=== PATIENT | male | born 1965 | race Caucasian/White ===

== ENCOUNTER 2022-12-26 21:50 | Emergency (ER) | payer BC ==
[2022-12-26 22:06] VITALS: TEMP 98.4
[2022-12-26] MEDS ORDERED: DIPH,PERTUS(ACELL)TETVAC-LF 0.5 ML VIAL IM ONE (22:24)
[2022-12-26] MEDS ORDERED: LIDOCAINE 1% INJ 10MG/ML (30 ML VIAL-PF) SQ ONE (22:24)
--- NOTE | 2022-12-26 22:25 | ED ---
Wound/Laceration HPI - General Chief Complaint: Wound/Laceration Stated Complaint: Fall, right arm laceration Time Seen by Provider: 12/26/22 22:20 Source: patient Mode of arrival: ambulatory Limitations: no limitations - History of Present Illness Initial Comments: Patient is a 57-year-old male presenting to the emergency room after a slip and fall caused him to hit his left hand and right forearm on a risk control specialist in the kitchen prior to arrival. He denies any injury to any other extremity, head trauma or loss of consciousness. He denies any range of motion impairment but does report significant bleeding from the laceration of his right forearm. He is unsure regarding his tetanus status. He denies any known contaminants to the wound. He denies any other complaints or concerns. He has past medical history significant for diabetes, hyperlipidemia, CAD and renal insufficiency. - Related Data Allergies Allergy/AdvReac Type Severity Reaction Status Date / Time acetaminophen [From Percocet] Allergy Rash/Hives Verified 12/26/22 22:06 oxycodone [From Percocet] Allergy Rash/Hives Verified 12/26/22 22:06 Review of Systems ROS Statement: Those systems with pertinent positive or pertinent negative responses have been documented in the HPI. ROS Other: All systems not noted in ROS Statement are negative. Past Medical History Past Medical History: Coronary Artery Disease (CAD), Diabetes Mellitus, Hyperlipidemia, Renal Disease History of Any Multi-Drug Resistant Organisms: None Reported Past Surgical History: Back Surgery, Bariatric Surgery, Heart Catheterization With Stent, Joint Replacement, Orthopedic Surgery Additional Past Surgical History / Comment(s): rt knee Past Psychological History: No Psychological Hx Reported Smoking Status: Current every day smoker Past Alcohol Use History: None Reported Past Drug Use History: None Reported General Exam Limitations: no limitations General appearance: alert, in no apparent distress Head exam: Present: atraumatic, normocephalic, normal inspection Eye exam: Present: normal appearance, PERRL, EOMI. Absent: scleral icterus, conjunctival injection, periorbital swelling ENT exam: Present: normal exam, mucous membranes moist Neck exam: Present: normal inspection, full ROM Respiratory exam: Absent: respiratory distress, accessory muscle use Cardiovascular Exam: Present: regular rate GI/Abdominal exam: Absent: distended Right Forearm Wrist exam: Present: full ROM, tenderness, swelling (localized after laceration closure), laceration (dorsal aspect ). Absent: deformity, crepitus, dislocation Vascular: Absent: vascular compromise Left Hand Wrist exam: Present: full ROM, tenderness, laceration (Palmar aspect PIP 3rd & 4th digit superficial no indication for closure. ). Absent: ecchymosis, deformity, crepitus, dislocation, nail avulsion Vascular: Absent: vascular compromise Back exam: Present: normal inspection Neurological exam: Present: alert, oriented X3, CN II-XII intact Psychiatric exam: Present: normal affect, normal mood Skin exam: Present: other (Lacerations as above) Course Vital Signs 12/26/22 12/27/22 22:03 00:20 Temperature 98.4 F Pulse Rate 66 60 Respiratory 20 18 Rate Blood Pressure 160/81 168/82 O2 Sat by Pulse 99 99 Oximetry Procedures - Laceration Laceration #1 Indication: laceration Site: upper extremity (right forearm dorsal aspect) Size (cm): 4 Description: linear Depth: simple, single layer Anesthetic Used: lidocaine 1% Anesthesia Technique: local infiltration Pre-repair: wound explored, irrigated extensively Type of Sutures: nylon Size of Sutures: 4-0 Number of Sutures: 10 Complications: other (localized swelling ) Patient Tolerated Procedure: well Medical Decision Making - Medical Decision Making Was pt. sent in by a medical professional or institution ([facility]ion, TRIM MOUNTER, urgent care, hospital, or intermediate...) When possible be specific @ -No Did you speak to anyone other than the patient for history (EMS, parent, family, police, friend...)? What history was obtained from this source @ -No Did you review nursing and triage notes (agree or disagree)? Why? @ -I reviewed and agree with nursing and triage notes Were old charts reviewed (outside hosp., previous admission, EMS record, old EKG, old radiological studies, urgent care reports/EKG's, intermediate records)? Report findings @ -No old charts were reviewed Differential Diagnosis (chest pain, altered mental status, abdominal pain women, abdominal pain men, vaginal bleeding, weakness, fever, dyspnea, syncope, headache, dizziness, GI bleed, back pain, seizure, CVA, palpatations, mental health, musculoskeletal)? @ -not applicable EKG interpreted by me (3pts min.). @ -None done X-rays interpreted by me (1pt min.). @ -X-ray right forearm: No evidence of fracture or dislocation. CT interpreted by me (1pt min.). @ -None done U/S interpreted by me (1pt. min.). @ -None done What testing was considered but not performed or refused? (CT, X-rays, U/S, labs)? Why? @ -None What meds were considered but not given or refused? Why? @ -None Did you discuss the management of the patient with other professionals (professionals i.e. , PA, TRIM MOUNTER, lab, RT, psych nurse, rn social services, winder fixer, teacher, parachute/combatant diver officer, home health care case manager)? Give summary @ -No Was smoking cessation discussed for >3mins.? @ -No Was critical care preformed (if so, how long)? @ -No Were there social determinants of health that impacted care today? How? (Homelessness, low income, unemployed, alcoholism, drug addiction, transportation, low edu. Level, literacy, decrease access to med. care, senior living, rehab)? @ -No Was there de-escalation of care discussed even if they declined (Discuss DNR or withdrawal of care, Hospice)? DNR status @ -No What co-morbidities impacted this encounter? (DM, HTN, Smoking, COPD, CAD, Cancer, CVA, ARF, Chemo, Hep., AIDS, mental health diagnosis, sleep apnea, morbid obesity)? @ -None Was patient admitted / discharged? Hospital course, mention meds given and route, prescriptions, significant lab abnormalities, going to OR and other pertinent info. @ -57-year-old presenting to the emergency room after a slip in the kitchen to hit his right arm on the middle of the risk control specialist along with his left hand. He denies any trauma to any other extremity. He denies any head trauma or loss of consciousness. He reports that the fall was a slip and fall. He is unsure of his tetanus status. He denies any range of motion impairment. Will obtain x-ray due to severity of laceration prior to closure. X-ray negative for fracture. Suture closure near completion with development of localized swelling at the site of laceration closure unable to express any sanguinous drainage. Swelling contained to approximately 2 cm surrounding laceration with no evidence of vascular compromise. Good radial pulse preempt post-laceration closure and development of localized edema. Pressure dressing applied. Wound care, suture care and local a swelling care all discussed with patient and spouse at bedside. Questions and concerns answered. Strict return parameters to the emergency room discussed. Will discharge home in stable condition with sutures intact to laceration closure of right forearm and pressure dressing intact due to localized swelling of laceration site advising follow-up with primary care provider along with suture removal in the emergency room in 7-10 days. Undiagnosed new problem with uncertain prognosis? @ -No Drug Therapy requiring intensive monitoring for toxicity (Heparin, Nitro, Insulin, Cardizem)? @ -No Were any procedures done? @ -Yes, see procedures for details. Diagnosis/symptom? @ -Laceration Acute, or Chronic, or Acute on Chronic? @ -Acute Uncomplicated (without systemic symptoms) or Complicated (systemic symptoms)? @ -Uncomplicated Side effects of treatment? @ -No Exacerbation, Progression, or Severe Exacerbation? @ -No Poses a threat to life or bodily function? How? (Chest pain, [place], [place], pneumonia, PE, COPD, DKA, ARF, appy, cholecystitis, CVA, Diverticulitis, Homicidal, Suicidal, threat to staff... and all critical care pts) @ -No Case discussed with Dr. Bruno. Disposition Clinical Impression: Laceration Disposition: HOME SELF-CARE Condition: Stable Instructions (If sedation given, give patient instructions): Care For Your Stitches (DC), Laceration (ED) Additional Instructions: Please keep wound clean and dry. Monitor for signs and symptoms of infection and seek medical attention as appropriate if symptoms occur. Please return to the emergency department for suture removal in 7-10 days. Please return to the Emergency Department if symptoms worsen or any other concerns. Is patient prescribed a controlled substance at d/c from ED?: No Referrals: Wood Solis MD [Primary Care Provider] - 1-2 days Time of Disposition: 00:02
[2022-12-27 00:21] VITALS: BP 168/82; PULSE 60; RESP 18
--- NOTE | 2022-12-27 01:06 | XR ---
EXAM: XR Right Forearm, 2 Views CLINICAL HISTORY: ITS.REASON XR Reason: laceration TECHNIQUE: Frontal and lateral views of the right forearm. COMPARISON: No relevant prior studies available. FINDINGS: Bones/joints: No fracture or malalignment. Soft tissues: Dorsal soft tissue laceration. No radiopaque foreign body. IMPRESSION: 1. No fracture or malalignment. 2. Dorsal soft tissue laceration.
== END 2022-12-27 00:28 | disposition home or self-care (01) ==
LOC: EC 21:50
DX: S51.811A Laceration without foreign body of right forearm, initial encounter (principal); E11.9 Type 2 diabetes mellitus without complications; E78.5 Hyperlipidemia, unspecified; I25.10 Atherosclerotic heart disease of native coronary artery without angina pectoris; F17.200 Nicotine dependence, unspecified, uncomplicated; Z88.5 Allergy status to narcotic agent; Z23 Encounter for immunization; W01.0XXA Fall on same level from slipping, tripping and stumbling without subsequent striking against object, initial encounter
CPT/HCPCS: 73090; 90715; 12002; 99283; 90471; J2001

== ENCOUNTER 2024-08-16 19:06 | Emergency (ER) | payer BC ==
[2024-08-16] MEDS: MORPHINE SULFATE 2 MG/ML SYRINGE IM STA (19:33)
--- NOTE | 2024-08-16 19:35 | ED ---
General Adult HPI - General Chief complaint: Head Injury Stated complaint: fall, head injury Time Seen by Provider: 08/16/24 19:13 Source: patient Mode of arrival: wheelchair Limitations: no limitations - History of Present Illness Initial comments: 58-year-old male presenting with chief complaint of head injury. Patient was walking in a parking lot with on even concrete, states that his foot got caught on the uneven surface and he fell forward hitting his head. Patient has a large hematoma to the right side of his forehead. No loss of consciousness or blood thinners. He is experiencing some mild dizziness. He is also experiencing right-sided chest pain worse with deep breaths. He had no chest pain prior to the injury. No shortness of breath. No extremity pain or injury. No abdominal pain. No nausea, vomiting, vision or hearing changes, numbness, tingling, weakness. - Related Data Allergies Allergy/AdvReac Type Severity Reaction Status Date / Time acetaminophen [From Percocet] Allergy Rash/Hives Verified 08/16/24 19:12 oxycodone [From Percocet] Allergy Rash/Hives Verified 08/16/24 19:12 Review of Systems ROS Statement: Those systems with pertinent positive or pertinent negative responses have been documented in the HPI. ROS Other: All systems not noted in ROS Statement are negative. Past Medical History Past Medical History: Coronary Artery Disease (CAD), Diabetes Mellitus, Hyperlipidemia, Renal Disease History of Any Multi-Drug Resistant Organisms: None Reported Past Surgical History: Back Surgery, Bariatric Surgery, Heart Catheterization With Stent, Joint Replacement, Orthopedic Surgery Additional Past Surgical History / Comment(s): rt knee Past Psychological History: No Psychological Hx Reported Smoking Status: Current every day smoker Past Alcohol Use History: None Reported Past Drug Use History: None Reported General Exam Limitations: no limitations General appearance: alert, in no apparent distress Expanded Head exam: Present: hematoma (Right-sided forehead) Eye exam: Present: normal appearance, PERRL, EOMI. Absent: periorbital tenderness Pupils: Present: normal accommodation Neck exam: Present: normal inspection, other (Some paraspinal muscle tenderness, no midline tenderness). Absent: full ROM (Patient has history of multiple neck surgeries and has limited range of motion at baseline) Respiratory exam: Present: normal lung sounds bilaterally, chest wall tenderness. Absent: respiratory distress, wheezes, rales, rhonchi, stridor Cardiovascular Exam: Present: regular rate, normal rhythm, normal heart sounds. Absent: systolic murmur, diastolic murmur, rubs, gallop, clicks Extremities exam: Present: normal inspection Neurological exam: Present: alert, oriented X3 Expanded Patient oriented to: Present: person, place, time Speech: Present: fluid speech Cranial nerves: EOM's Intact: Normal Motor strength exam: RUE: 5, LUE: 5, RLE: 5, LLE: 5 Eye Response: (4) open spontaneously Motor Response: (6) obeys commands Verbal Response: (5) oriented [place] Total: 15 Psychiatric exam: Present: normal affect, normal mood Skin exam: Present: warm, dry Course Vital Signs 08/16/24 08/16/24 08/16/24 19:09 20:45 21:17 Temperature 97.7 F Pulse Rate 67 61 74 Respiratory 18 18 16 Rate Blood Pressure 166/99 163/105 126/89 O2 Sat by Pulse 99 99 98 Oximetry 08/16/24 21:51 Temperature 98.1 F Pulse Rate 64 Respiratory 18 Rate Blood Pressure 176/95 O2 Sat by Pulse 97 Oximetry Medical Decision Making - Medical Decision Making 58-year-old male presenting with chief complaint of head injury. Patient had a trip and fall in the parking lot hitting his face on the ground. He has a large hematoma to the right side of his forehead. No loss of consciousness or blood thinners. No focal neurological deficits, GCS is 15. No acute intracranial process, or fracture of the cervical spine or facial bones. Chest x-ray shows no acute process. Patient is given pain medication and educated on today's findings. Educated on supportive management at home. Follow-up with PCP. Report back to ER with any new or worsening symptoms. Discussed return parameters and answered all questions. Patient conveyed verbal understanding and agreed to the plan. I discussed this case in detail with my attending Dr. Bruno Was pt. sent in by a medical professional or institution (, PA, RECEPTION CENTRE MANAGER, urgent care, hospital, or usp...) When possible be specific @ -No Did you speak to anyone other than the patient for history (EMS, parent, family, police, friend...)? What history was obtained from this source @ -Family Did you review nursing and triage notes (agree or disagree)? Why? @ -I reviewed and agree with nursing and triage notes Were old charts reviewed (outside hosp., previous admission, EMS record, old EKG, old radiological studies, urgent care reports/EKG's, usp records)? Report findings @ -No old charts were reviewed Differential Diagnosis (chest pain, altered mental status, abdominal pain women, abdominal pain men, vaginal bleeding, weakness, fever, dyspnea, syncope, headache, dizziness, GI bleed, back pain, seizure, CVA, palpatations, mental health, musculoskeletal)? @ -Differential includes uncomplicated head injury, concussion, hematoma, fracture, hemorrhage, not an all-inclusive list EKG interpreted by me (3pts min.). @ -As above X-rays interpreted by me (1pt min.). @ -No acute process seen on chest x-ray CT interpreted by me (1pt min.). @ -CT shows no acute intracranial process. Right frontal scalp hematoma measuring 37 x 14 mm. No evidence of cervical spine fracture. Mild multilevel degenerative disc disease U/S interpreted by me (1pt. min.). @ -None done What testing was considered but not performed or refused? (CT, X-rays, U/S, labs)? Why? @ -None What meds were considered but not given or refused? Why? @ -None Did you discuss the management of the patient with other professionals (professionals i.e. , PA, RECEPTION CENTRE MANAGER, lab, RT, psych nurse, clinical social worker, sales assistant, teacher, custody officer, behavioral health case manager)? Give summary @ -No Was smoking cessation discussed for >3mins.? @ -No Was critical care preformed (if so, how long)? @ -No Were there social determinants of health that impacted care today? How? (Homelessness, low income, unemployed, alcoholism, drug addiction, transportation, low edu. Level, literacy, decrease access to med. care, [facility], rehab)? @ -No Was there de-escalation of care discussed even if they declined (Discuss DNR or withdrawal of care, Hospice)? DNR status @ -No What co-morbidities impacted this encounter? (DM, HTN, Smoking, COPD, CAD, Cancer, CVA, ARF, Chemo, Hep., AIDS, mental health diagnosis, sleep apnea, morbid obesity)? @ -None Was patient admitted / discharged? Hospital course, mention meds given and route, prescriptions, significant lab abnormalities, going to OR and other pertinent info. @ -Discharge, see above for details Undiagnosed new problem with uncertain prognosis? @ -No Drug Therapy requiring intensive monitoring for toxicity (Heparin, Nitro, Insulin, Cardizem)? @ -No Were any procedures done? @ -No Diagnosis/symptom? @ -Head injury, traumatic hematoma of the forehead Acute, or Chronic, or Acute on Chronic? @ -Acute Uncomplicated (without systemic symptoms) or Complicated (systemic symptoms)? @ -Uncomplicated Side effects of treatment? @ -No Exacerbation, Progression, or Severe Exacerbation? @ -No Poses a threat to life or bodily function? How? (Chest pain, [place], [place], pneumonia, PE, COPD, DKA, ARF, appy, cholecystitis, CVA, Diverticulitis, Homicidal, S uicidal, threat to staff... and all critical care pts) @ -Low likelihood Disposition Clinical Impression: Traumatic hematoma of forehead, Closed head injury Disposition: HOME SELF-CARE Condition: Good Instructions (If sedation given, give patient instructions): Head Injury (ED), Hematoma (ED) Additional Instructions: Follow up with PCP. Report back to ER with any new or worsening symptoms. Take Motrin and Tylenol as needed for pain control. Use ice to help bring down swelling. You can also use Daryl wrap to help compress the hematoma and help bring down swelling Is patient prescribed a controlled substance at d/c from ED?: No Referrals: Wood Solis MD [Primary Care Provider] - 1-2 days Time of Disposition: 21:32
[2024-08-16] MEDS: SODIUM CHLORIDE 0.9% 1,000 ML IV ONE (19:53)
[2024-08-16] MEDS: HYDROmorphone 0.5 MG/0.5 ML SYRINGE IVP STA ×2 (19:53→20:56)
--- NOTE | 2024-08-16 20:35 | XR ---
EXAMINATION TYPE: XR chest 2V DATE OF EXAM: 08/16/2024 8:29 PM COMPARISON: None CLINICAL INDICATION: Male, 58 years old with history of fall; pain TECHNIQUE: XR chest 2V Frontal and lateral views of the chest. FINDINGS: Lungs/Pleura: There is no evidence of pleural effusion, focal consolidation, or pneumothorax. Pulmonary vascularity: Unremarkable. Heart/mediastinum: Cardiomediastinal silhouette is unremarkable. Musculoskeletal: No acute osseous pathology. IMPRESSION: No acute cardiopulmonary disease/process. [facility], , 08/16/2024 8:33 PM
--- NOTE | 2024-08-16 21:01 | CT ---
EXAMINATION TYPE: CT brain cspine wo con, CT facial bones wo con DATE OF EXAM: 08/16/2024 8:24 PM COMPARISON: None. CLINICAL INDICATION: Male, 58 years old with history of fall; FALL, pain TECHNIQUE: Brain: Multiple axial CT images of the brain were obtained without IV contrast. Cspine: Axial CT images from the skull base to the inferior aspect of T2 we obtained without intraven ous contrast. Coronal and sagittal reformatted images were also reviewed. Facial: Axial imaging of the facial structures with sagittal and coronal reformats. CT DLP: 1272.1 COMBINED (accession [id number]), 1272 COMBINED (accession [id number]) mGycm, Automated exp osure control for dose reduction was used. FINDINGS: Brain: Extra-axial spaces: No abnormal extra-axial fluid collections. Ventricular system: Within normal limits Cerebral parenchyma: No acute intraparenchymal hemorrhage or mass effect. The jacobs-white junction is well differentiated. Cerebellum: Unremarkable. Mass effect: No evidence of midline shift. Intracranial vasculature: Atherosclerotic calcifications of the intracranial vessels. Soft tissues: Right frontal scalp hematoma measuring 37 x 14 mm Calvarium/osseous structures: No depressed skull fracture. Paranasal sinuses and mastoid air cells: Clear. Visualized orbits: Orbital contents are intact. Cervical spine: Fracture: None. Osseous structures: Multilevel degenerative disc disease changes with endplate spurring and disc oste ophyte complex's. Fixation hardware at C3 C4 C5 is intact. Vertebral alignment: Within normal limits. Spinal canal/Neural Foramina: Disc osteophyte complexes at increased C4-C6 C7. With at least mild spi nal canal stenosis. No evidence for significant neural foraminal stenosis. Neck soft tissues: Prevertebral soft tissues are within normal limits. Other: The airway is patent. The lung apices are clear. Facial: Right frontal scalp hematoma measuring 37 x 14 mm. There is no evidence of fracture, subluxat ion, dislocation. The orbital contents are unremarkable.The temporal-mandibular joints appear symmetr ic. The mild paranasal sinus mucosal thickening. IMPRESSION: 1. No acute intracranial process. 2. Right frontal scalp hematoma measuring 37 x 14 mm 3. No evidence of cervical spine fracture. 4. Mild multilevel degenerative disc disease. [facility], , 08/16/2024 8:59 PM
[2024-08-16] MEDS: HYDROmorphone 1 MG/ML 1 ML SYRINGE IVP STA (21:08)
[2024-08-16] MEDS: KETOROLAC 15 MG/ML 1 ML VIAL IVP STA (21:09)
[2024-08-16 21:53] VITALS: BP 176/95; PULSE 64; RESP 18; TEMP 98.1
== END 2024-08-16 21:54 | disposition home or self-care (01) ==
LOC: EC 19:06
DX: S00.83XA Contusion of other part of head, initial encounter (principal); S06.9X0A Unspecified intracranial injury without loss of consciousness, initial encounter; F17.200 Nicotine dependence, unspecified, uncomplicated; Z88.1 Allergy status to other antibiotic agents; Z88.5 Allergy status to narcotic agent; W22.09XA Striking against other stationary object, initial encounter; Y92.481 Parking lot as the place of occurrence of the external cause
CPT/HCPCS: 71046; 72125; 70486; 70450; 99284; 96372; 96374; 96375; 96376; 96361; J2270; J1171 ×2; J1885

== ENCOUNTER 2024-11-07 09:34 | Emergency (ER) | payer BC ==
[2024-11-07 09:43] VITALS: TEMP 97.9
--- NOTE | 2024-11-07 10:37 | ED ---
General Adult HPI - General Chief complaint: Chest Pain Stated complaint: chest pain Time Seen by Provider: 11/07/24 09:47 Source: patient, family Mode of arrival: ambulatory Limitations: no limitations - History of Present Illness Initial comments: Dictation was produced using [employer] dictation software. please excuse any grammatical, word or spelling errors. Chief Complaint: 59-year-old male presents to the emergency department with chest burning, left knee pain left calf pain and left ankle pain History of Present Illness: Patient 59-year-old male who has a history of chronic pain. Last week states he saw his pain doctor. Last 1 week patient has been having burning sensation to his esophagus, chest and upper abdomen. He has history of perforated gastric ulcer states that his symptoms remind him of that. States that he has also had diarrhea. Also complains of left knee pain left ankle pain left calf pain. Saw the pain doctor last week told him that he might have a DVT. The ROS documented in this emergency department record has been reviewed and confirmed by me. Those systems with pertinent positive or negative responses have been documented in the HPI. All other systems are other negative and/or noncontributory. - Related Data Previous Rx's Medication Instructions Recorded Azithromycin [Zithromax Z Pack] 1 tab PO DIRECTED #6 tab 11/07/24 Allergies Allergy/AdvReac Type Severity Reaction Status Date / Time acetaminophen [From Percocet] Allergy Rash/Hives Verified 08/16/24 19:12 oxycodone [From Percocet] Allergy Rash/Hives Verified 08/16/24 19:12 Review of Systems ROS Statement: Those systems with pertinent positive or pertinent negative responses have been documented in the HPI. ROS Other: All systems not noted in ROS Statement are negative. Past Medical History Past Medical History: Coronary Artery Disease (CAD), Diabetes Mellitus, Hyperlipidemia, Renal Disease History of Any Multi-Drug Resistant Organisms: None Reported Past Surgical History: Back Surgery, Bariatric Surgery, Heart Catheterization With Stent, Joint Replacement, Orthopedic Surgery Additional Past Surgical History / Comment(s): rt knee,gastric bypass Past Psychological History: No Psychological Hx Reported Smoking Status: Current every day smoker Past Alcohol Use History: None Reported Past Drug Use History: None Reported General Exam - General Exam Comments Initial Comments: PHYSICAL EXAM: General Impression: Alert and oriented x3, not in acute distress, pallor HEENT: Normocephalic atraumatic, extra-ocular movements intact, pupils equal and reactive to light bilaterally, mucous membranes moist. Cardiovascular: Heart regular rate and rhythm Chest: Able to complete full sentences, no retractions, no tachypnea Abdomen: abdomen soft, non-tender, non-distended, no organomegaly Musculoskeletal: Pulses present and equal in all extremities, no peripheral edema Motor: no focal deficits noted Neurological: CN II-XII grossly intact, no focal motor or sensory deficits noted Skin: Intact with no visualized rashes Psych: Normal affect and mood Limitations: no limitations Course Vital Signs 11/07/24 11/07/24 11/07/24 09:41 11:20 13:00 Temperature 97.9 F Pulse Rate 66 60 66 Respiratory 16 20 18 Rate Blood Pressure 186/96 139/82 140/79 O2 Sat by Pulse 98 97 99 Oximetry EKG Findings - EKG Comments: EKG Findings:: My EKG interpretation: Ventricular rate 64, sinus rhythm, parable 197, cures 121, QTc 420. No UT prolongation, no QTC prolongation, no ST or T- wave changes noted. Overall, this EKG is unremarkable Medical Decision Making - Medical Decision Making Was pt. sent in by a medical professional or institution (, PA, DEPUTY GENERAL COUNSEL, urgent care, hospital, or longterm...) When possible be specific @ -No Did you speak to anyone other than the patient for history (EMS, parent, family, police, friend...)? What history was obtained from this source @ -No Did you review nursing and triage notes (agree or disagree)? Why? @ -I reviewed and agree with nursing and triage notes Were old charts reviewed (outside hosp., previous admission, EMS record, old EKG, old radiological studies, urgent care reports/EKG's, longterm records)? Report findings @ -No old charts were reviewed Differential Diagnosis (chest pain, altered mental status, abdominal pain women, abdominal pain men, vaginal bleeding, musculoskeletal, weakness, fever, dyspnea, syncope, headache, dizziness, GI bleed, back pain, seizure, CVA, palpatations, mental health)? @ -Differential Abdominal Pain Men: Appendicitis, cholecystitis, diverticulosis, ischemic bowel, pancreatitis, hepatitis, UTI, gastroenteritis, AAA, incarcerated hernia, bowel obstruction, constipation, inflammatory bowel, hepatitis, peptic ulcer disease, splenic infarction, perforated viscus, testicular torsion, this is not meant to be an all-inclusive list See above EKG interpreted by me (3pts min.). @ -None done X-rays interpreted by me (1pt min.). @ -Chest x-ray is unremarkable, knee and ankle x-ray shows no acute processes. CT interpreted by me (1pt min.). @ -CT chest abdomen and pelvis obtained. There is inflammatory changes seen along with colon without any complication. U/S interpreted by me (1pt. min.). @ -None done What testing was considered but not performed or refused? (CT, X-rays, U/S, labs)? Why? @ -None What meds were considered but not given or refused? Why? @ -None Was smoking cessation discussed for >3mins.? @ -No Were there social determinants of health that impacted care today? How? (Homelessness, low income, unemployed, alcoholism, drug addiction, transportat ion, low edu. Level, literacy, decrease access to med. care, prison, rehab)? @ -No Was there de-escalation of care discussed even if they declined (Discuss DNR or withdrawal of care, Hospice)? DNR status @ -No What co-morbidities impacted this encounter? (DM, HTN, Smoking, COPD, CAD, Cancer, CVA, ARF, Chemo, Hep., AIDS, mental health diagnosis, sleep apnea, morbid obesity)? @ -History of peptic ulcer Was patient admitted / discharged? Hospital course, mention meds given and route, prescriptions, significant lab abnormalities, going to OR and other pertinent info. @ -59-year-old male presents to the emergency department with vague symptoms of esophageal burning, diarrhea and abdominal cramping. Vital signs upon arrival are within acceptable limits. Patient states that whenever he eats he gets instant watery diarrhea. Denies any blood or mucus in his stool. Vital signs are stable. Laboratory evaluation is unremarkable. No leukocytosis rest of labs within acceptable limits. Abdominal labs are negative. Patient did report some relief with GI cocktail. CT angiography shows colitis. Ankle knee x-rays shows arthritis. Chest x-ray nonacute. Venous Doppler shows no blood clot. Patient reevaluated the bedside at 2:00 PM is told that symptoms could reflect ischemic colitis. Given degree of patient's symptoms he was recommended to him to be admitted overnight for serial abdominal exams and medical monitoring. He states that he refuses needs to be discharged because he has personal matters to attend to including a court appearance along with other errands. Patient unde rstands that his symptoms could progressively worsen. He is discharged advised close follow-up with primary care doctor, GI specialist. He is also given strict return precautions. Patient given Z-Tino for persistent diarrhea. Still to lease picker Maalox along with antidiarrheal medications at local pharmacy. Did you discuss the management of the patient with other professionals (professionals i.e. , PA, DEPUTY GENERAL COUNSEL, lab, RT, psych nurse, social secretary, wire transfer clerk, teacher, debt recovery officer, case packer and sealer)? Give summary @ -No Was critical care preformed (if so, how long)? @ -No Undiagnosed new problem with uncertain prognosis? @ -No Drug Therapy requiring intensive monitoring for toxicity (Heparin, Nitro, Insulin, Cardizem)? @ -No Were any procedures done? @ -No Diagnosis/symptom? Acute, or Chronic, or Acute on Chronic? Uncomplicated (without systemic symptoms) or Complicated (systemic symptoms)? @ -Colitis Side effects of treatment? @ -No Exacerbation, Progression, or Severe Exacerbation? @ -No Poses a threat to life or bodily function? How? (Chest pain, USA, IA, pneumonia, PE, COPD, DKA, ARF, appy, cholecystitis, CVA, Diverticulitis, Homicidal, Suicidal, threat to staff... and all critical care pts) @ -yes - Lab Data Result diagrams: 11/07/24 10:32 11/07/24 10:32 Lab Results 11/07/24 11/07/24 11/07/24 Range/Units 10:32 10:32 10:32 WBC 9.10 (4.50-10.00) 10*3/uL RBC 6.23 H (4.40-5.60) 10*6/uL Hgb 15.0 (13.0-17.0) g/dL Hct 45.3 (39.6-50.0) % MCV 72.7 L (80.0-97.0) fL MCH 24.1 L (27.0-32.0) pg MCHC 33.1 (32.0-37.0) g/dL Plt Count 216 (140-440) 10*3/uL MPV 10.8 (9.5-12.2) fL Immature Gran % (Auto) 0.2 % Neutrophils % 72.2 % Lymphocytes % 16.7 % Monocytes % 8.7 % Eosinophils % 1.4 % Basophils % 0.8 % Immature Gran # 0.02 (0.00-0.04) 10*3/uL Neutrophils # 6.57 (1.80-7.70) 10*3/uL Lymphocytes # 1.52 (0.90-5.00) 10*3/uL Monocytes # 0.79 (0.20-1.00) 10*3/uL Eosinophils # 0.13 (0.04-0.35) 10*3/uL Basophils # 0.07 (0.00-0.10) 10*3/uL RBC Morphology Normal Poikilocytosis (manual Present PT 10.7 (10.0-12.5) sec INR 1.0 (<1.2) APTT 24.2 (22.0-30.0) sec Sodium 138 (137-145) mmol/L Potassium 4.2 (3.5-5.1) mmol/L Chloride 106 (98-107) mmol/L Carbon Dioxide 24 (22-30) mmol/L Anion Gap 8 mmol/L BUN 12 (9-20) mg/dL Creatinine 1.27 H (0.66-1.25) mg/dL Est GFR (CKD-EPI)AfAm 71 (>60 ml/min/1.73 sqM) Est GFR (CKD-EPI)NonAf 61 (>60 ml/min/1.73 sqM) Glucose 90 (74-99) mg/dL Plasma Lactic Acid Jewel (0.7-2.0) mmol/L Calcium 9.5 (8.4-10.2) mg/dL Magnesium 2.3 (1.6-2.3) mg/dL Total Bilirubin 1.0 (0.2-1.3) mg/dL AST 55 (17-59) U/L ALT 44 (4-49) U/L Alkaline Phosphatase 93 (38-126) U/L Troponin I (0.000-0.034) ng/mL Total Protein 7.4 (6.3-8.2) g/dL Albumin 4.2 (3.5-5.0) g/dL Lipase 137 (23-300) U/L Blood Type Blood Type Confirm Blood Type Recheck Bld Type Recheck Status Antibody Screen Spec Expiration Date 11/07/24 11/07/24 11/07/24 Range/Units 10:32 10:32 10:40 WBC (4.50-10.00) 10*3/uL RBC (4.40-5.60) 10*6/uL Hgb (13.0-17.0) g/dL Hct (39.6-50.0) % MCV (80.0-97.0) fL MCH (27.0-32.0) pg MCHC (32.0-37.0) g/dL Plt Count (140-440) 10*3/uL MPV (9.5-12.2) fL Immature Gran % (Auto) % Neutrophils % % Lymphocytes % % Monocytes % % Eosinophils % % Basophils % % Immature Gran # (0.00-0.04) 10*3/uL Neutrophils # (1.80-7.70) 10*3/uL Lymphocytes # (0.90-5.00) 10*3/uL Monocytes # (0.20-1.00) 10*3/uL Eosinophils # (0.04-0.35) 10*3/uL Basophils # (0.00-0.10) 10*3/uL RBC Morphology Poikilocytosis (manual PT (10.0-12.5) sec INR (<1.2) APTT (22.0-30.0) sec Sodium (137-145) mmol/L Potassium (3.5-5.1) mmol/L Chloride (98-107) mmol/L Carbon Dioxide (22-30) mmol/L Anion Gap mmol/L BUN (9-20) mg/dL Creatinine (0.66-1.25) mg/dL Est GFR (CKD-EPI)AfAm (>60 ml/min/1.73 sqM) Est GFR (CKD-EPI)NonAf (>60 ml/min/1.73 sqM) Glucose (74-99) mg/dL Plasma Lactic Acid Jewel 1.0 (0.7-2.0) mmol/L Calcium (8.4-10.2) mg/dL Magnesium (1.6-2.3) mg/dL Total Bilirubin (0.2-1.3) mg/dL AST (17-59) U/L ALT (4-49) U/L Alkaline Phosphatase (38-126) U/L Troponin I <0.012 (0.000-0.034) ng/mL Total Protein (6.3-8.2) g/dL Albumin (3.5-5.0) g/dL Lipase (23-300) U/L Blood Type Blood Type Confirm A Positive Blood Type Recheck Bld Type Recheck Status Antibody Screen Spec Expiration Date 11/07/24 Range/Units 10:45 WBC (4.50-10.00) 10*3/uL RBC (4.40-5.60) 10*6/uL Hgb (13.0-17.0) g/dL Hct (39.6-50.0) % MCV (80.0-97.0) fL MCH (27.0-32.0) pg MCHC (32.0-37.0) g/dL Plt Count (140-440) 10*3/uL MPV (9.5-12.2) fL Immature Gran % (Auto) % Neutrophils % % Lymphocytes % % Monocytes % % Eosinophils % % Basophils % % Immature Gran # (0.00-0.04) 10*3/uL Neutrophils # (1.80-7.70) 10*3/uL Lymphocytes # (0.90-5.00) 10*3/uL Monocytes # (0.20-1.00) 10*3/uL Eosinophils # (0.04-0.35) 10*3/uL Basophils # (0.00-0.10) 10*3/uL RBC Morphology Poikilocytosis (manual PT (10.0-12.5) sec INR (<1.2) APTT (22.0-30.0) sec Sodium (137-145) mmol/L Potassium (3.5-5.1) mmol/L Chloride (98-107) mmol/L Carbon Dioxide (22-30) mmol/L Anion Gap mmol/L BUN (9-20) mg/dL Creatinine (0.66-1.25) mg/dL Est GFR (CKD-EPI)AfAm (>60 ml/min/1.73 sqM) Est GFR (CKD-EPI)NonAf (>60 ml/min/1.73 sqM) Glucose (74-99) mg/dL Plasma Lactic Acid Jewel (0.7-2.0) mmol/L Calcium (8.4-10.2) mg/dL Magnesium (1.6-2.3) mg/dL Total Bilirubin (0.2-1.3) mg/dL AST (17-59) U/L ALT (4-49) U/L Alkaline Phosphatase (38-126) U/L Troponin I (0.000-0.034) ng/mL Total Protein (6.3-8.2) g/dL Albumin (3.5-5.0) g/dL Lipase (23-300) U/L Blood Type A Positive Blood Type Confirm Blood Type Recheck No Previous Record Bld Type Recheck Status CABO Indicated Antibody Screen NEGATIVE Spec Expiration Date 11/10/20242344 Disposition Clinical Impression: Colitis Disposition: HOME SELF-CARE Condition: Fair Instructions (If sedation given, give patient instructions): Colitis (ED) Additional Instructions: please visit your local pharmacy for medications to treat your symptoms including maalox and imodium Prescriptions: Azithromycin [Zithromax Z Pack] 1 tab PO DIRECTED #6 tab Is patient prescribed a controlled substance at d/c from ED?: No Referrals: Shawna Rodrigues MD [STAFF PHYSICIAN] - 1-2 days Time of Disposition: 14:00
[2024-11-07 10:46] LABS: Basophils # (A) 0.07 10*3/uL (0.00-0.10); Basophils % (A) 0.8 %; Eosinophils # (A) 0.13 10*3/uL (0.04-0.35); Eosinophils % (A) 1.4 %; HCT 45.3 % (39.6-50.0); Lymphocytes # (A) 1.52 10*3/uL (0.90-5.00); Lymphocytes % (A) 16.7 %; MCH 24.1 pg (27.0-32.0); MCHC 33.1 g/dL (32.0-37.0); MCV 72.7 fL (80.0-97.0); Mean Platelet Volume 10.8 fL (9.5-12.2); Monocytes # (A) 0.79 10*3/uL (0.20-1.00); Monocytes % (A) 8.7 %; Neutrophils # (A) 6.57 10*3/uL (1.80-7.70); Neutrophils % (A) 72.2 %; Platelet Count 216 10*3/uL (140-440); RBC 6.23 10*6/uL (4.40-5.60); RDW 18.2 % (11.5-14.5)
[2024-11-07 11:00] LABS: Partial Thromboplastin Time 24.2 sec (22.0-30.0); Prothrombin Time 10.7 sec (10.0-12.5)
[2024-11-07 11:06] LABS: ALT 44 U/L (4-49); AST 55 U/L (17-59); African American GFR (CKD) 71 (>60 ml/min/1.73 sqM); Albumin 4.2 g/dL (3.5-5.0); Alkaline Phosphatase 93 U/L (38-126); Anion Gap 8 mmol/L; Blood Urea Nitrogen 12 mg/dL (9-20); Calcium 9.5 mg/dL (8.4-10.2); Carbon Dioxide 24 mmol/L (22-30); Chloride 106 mmol/L (98-107); Glucose 90 mg/dL (74-99); Lipase 137 U/L (23-300); Magnesium 2.3 mg/dL (1.6-2.3); Non-African American GFR(CKD) 61 (>60 ml/min/1.73 sqM); Potassium 4.2 mmol/L (3.5-5.1); Sodium 138 mmol/L (137-145); Total Protein 7.4 g/dL (6.3-8.2)
--- NOTE | 2024-11-07 11:09 | US ---
EXAMINATION TYPE: US venous doppler duplex LE LT DATE OF EXAM: 11/07/2024 10:24 AM COMPARISON: NONE CLINICAL INDICATION: Male, 59 years old with history of left leg pain; Left leg pain and edema , Pain TECHNIQUE: The lower extremity deep venous system is examined utilizing real time linear array sonog moy with graded compression, color doppler sonography, and spectral doppler. SIDE PERFORMED: left FINDINGS: VESSELS IMAGED: Common Femoral Vein Deep Femoral Vein Greater Saphenous Vein * Femoral Vein Popliteal Vein Small Saphenous Vein * Proximal Calf Veins (* superficial vessels) Left Leg: No evidence of DVT as visualized , Color Doppler imaging shows patency of the vessels. Spe ctral waveforms are within normal limits. IMPRESSION: 1. No evidence of acute deep vein thrombosis of the left lower extremity. [facility], , 11/07/2024 11:07 AM
[2024-11-07 11:19] LABS: Poikilocytosis (M) Present; RBC Morphology Normal
--- NOTE | 2024-11-07 11:44 | XR ---
EXAMINATION TYPE: XR chest 2V DATE OF EXAM: 11/07/2024 CLINICAL INDICATION: Male, 59 years old with history of epigastric pain, TECHNIQUE: Frontal and lateral views of the chest are obtained. COMPARISON: Chest x-ray August 16, 2024 FINDINGS: There is mild cardiomegaly redemonstrated. Small amount of fluid in the right lung fissure. No suspicious focal airspace opacity or pneumothorax seen bilaterally. Surgical change of cervical s pine is partially imaged. IMPRESSION: Mild cardiomegaly without acute pulmonary infiltrate. [facility], , 11/07/2024 11:42 AM
--- NOTE | 2024-11-07 11:45 | XR ---
EXAMINATION TYPE: XR knee complete LT DATE OF EXAM: 11/07/2024 CLINICAL INDICATION: Male, 59 years old with history of left leg pain, pain TECHNIQUE: 3 views of the knee were obtained. COMPARISON: None. FINDINGS: There is no acute fracture/dislocation evident in left knee. Moderate tricompartment joint space loss and spurring. Subtle meniscal calcifications medially felt present. Posterior arteriovasc ular calcification is present. IMPRESSION: As above. [facility], , 11/07/2024 11:43 AM
--- NOTE | 2024-11-07 11:47 | XR ---
EXAMINATION TYPE: XR ankle complete LT DATE OF EXAM: 11/07/2024 CLINICAL INDICATION: Male, 59 years old with history of left leg pain, pain TECHNIQUE: Frontal, lateral and oblique images of the left ankle are obtained. COMPARISON: None. FINDINGS: There is no acute fracture/dislocation evident in the left ankle. The ankle mortise appea rs within normal limits. Moderate diffuse soft tissue swelling is seen. Some faint calcifications med ially distal leg likely reflect product of venous stasis. IMPRESSION: As above. [facility], , 11/07/2024 11:44 AM
[2024-11-07] MEDS ORDERED: MAG HYDROX/AL HYDROX/SIMETH 30 ML CUP PO PRN (12:08)
[2024-11-07] MEDS: LIDOCAINE VISCOUS 2% 15 ML CUP PO ONE (12:26)
[2024-11-07] MEDS: HYOSCYAMINE SULFATE 0.125 MG TAB PO STA (13:23)
--- NOTE | 2024-11-07 13:26 | CT ---
EXAMINATION TYPE: CT ChestAbdPelvis w con DATE OF EXAM: 11/07/2024 COMPARISON: NONE CLINICAL INDICATION: Male, 59 years old with history of epigastric pain, Chest pain, epigastric pain, cardiac hx, TECHNIQUE: CT scan of the thorax, abdomen and pelvis is performed with IV Contrast, patient injected with 80 mL of Isovue 300. CT DLP: 1612.4 mGycm. Automated Exposure Control for Dose Reduction was Utilized. FINDINGS: LUNGS: Focal linear scarring or atelectasis right midlung laterally is seen. [id number] right g reater than left bibasilar linear scarring and/or atelectasis is present . There is no pleural effusi on or pneumothorax seen. The tracheobronchial tree is patent. HEART: Size within normal limits. Moderate to severe three-vessel coronary artery calcification MEDIASTINUM: There are no greater than 1 cm hilar or mediastinal lymph nodes. No pericardial effusi on is seen. OTHER: Small degree bilateral subareolar gynecomastia. Surgical clips in the right axilla are thought present. LIVER/GB: Dependent density in gallbladder is consistent with small degree of sludge. Gallbladder is distended margins. No surrounding ill-defined fluid or fat stranding. Surgical clip just inferior to the gallbladder is noted. PANCREAS: No significant abnormality is seen. SPLEEN: No significant abnormality is seen. ADRENALS: No significant abnormality is seen. KIDNEYS: No significant abnormality is seen. BOWEL: Surgical changes epigastric region from gastric bypass surgery. No abnormal small or large bow el dilatation. Suboptimal evaluation without enteric contrast. Moderate wall thickening involving the left and sigmoid colon is present extending into the rectum. GENITAL ORGANS: No gross abnormality seen. LYMPH NODES: No greater than 1cm abdominal or pelvic lymph nodes are appreciated. OSSEOUS STRUCTURES: Surgical change L3-S1 levels is present. Bridging osteophytes in the thoracic spi ne are seen. OTHER: No significant additional abnormality is seen. IMPRESSION: Post surgical change to the stomach is present. There is possible uncomplicated acute di stal colitis from the distal transverse colon to the rectum versus product of poor distention. Differ ential includes infectious, inflammatory, and ischemic etiologies. Correlate clinically. No suspiciou s acute finding in the thorax is seen. [facility], , 11/07/2024 1:24 PM
[2024-11-07 13:32] VITALS: RESP 18
[2024-11-07] MEDS: DEXAMETHASONE SOD PHOSPHATE 10 MG/ML 1 ML VIAL IV STA (14:12)
[2024-11-07 14:15] VITALS: BP 136/94; PULSE 64
== END 2024-11-07 19:24 | disposition home or self-care (01) ==
LOC: EC 09:34
DX: K52.9 Noninfective gastroenteritis and colitis, unspecified (principal); Z87.11 Personal history of peptic ulcer disease; F17.200 Nicotine dependence, unspecified, uncomplicated; Z88.5 Allergy status to narcotic agent; Z88.6 Allergy status to analgesic agent
CPT/HCPCS: 36415; 93005; 86900; 86901; 80053; 83605; 83690; 83735; 84484; 85025; 85610; 85730; 86850; 73562; 73610; 71046; 93971; 71260; 74177; 99285; 96374; J1100; Q9967

== ENCOUNTER 2025-02-11 13:16 | Emergency (ER) | payer BC ==
[2025-02-11 13:24] VITALS: TEMP 97.8
[2025-02-11 13:33] LABS: Glucose,Whole Blood 104 mg/dL (70-110)
--- NOTE | 2025-02-11 13:36 | ED ---
General Adult HPI - General Chief complaint: Dizziness Stated complaint: Dizziness Time Seen by Provider: 02/11/25 13:19 Source: patient, family, RN notes reviewed Mode of arrival: EMS Limitations: no limitations - History of Present Illness Initial comments: Patient is a 59-year-old male present to the emergency department with concerns for dizziness and near syncopal episode. Patient was at work working quickly in a hot environment. Patient suddenly felt extremely dizzy and almost lost consciousness. Patient states he never lost consciousness. Patient admits to having right arm weakness however states this was from a fall 2 weeks ago. Patient states that his from discomfort from the fall and not from today. Patient states there is no change from arm problems yesterday and today. Patient attributes his arm weakness to pain with movement. - Related Data Previous Rx's Medication Instructions Recorded Azithromycin [Zithromax Z Pack] 1 tab PO DIRECTED #6 tab 11/07/24 Allergies Allergy/AdvReac Type Severity Reaction Status Date / Time acetaminophen [From Percocet] Allergy Rash/Hives Verified 02/11/25 13:24 oxycodone [From Percocet] Allergy Rash/Hives Verified 02/11/25 13:24 Review of Systems ROS Statement: Those systems with pertinent positive or pertinent negative responses have been documented in the HPI. ROS Other: All systems not noted in ROS Statement are negative. Constitutional: Denies: fever Eyes: Denies: eye pain ENT: Denies: ear pain Cardiovascular: Denies: chest pain Gastrointestinal: Denies: abdominal pain Musculoskeletal: Reports: as per HPI. Denies: back pain Neurological: Reports: vertigo. Denies: headache, weakness Past Medical History Past Medical History: Coronary Artery Disease (CAD), Diabetes Mellitus, Hyperlipidemia, Renal Disease History of Any Multi-Drug Resistant Organisms: None Reported Past Surgical History: Back Surgery, Bariatric Surgery, Heart Catheterization With Stent, Joint Replacement, Orthopedic Surgery Additional Past Surgical History / Comment(s): rt knee,gastric bypass Past Psychological History: No Psychological Hx Reported Smoking Status: Current every day smoker Past Alcohol Use History: None Reported Past Drug Use History: None Reported General Exam Limitations: no limitations General appearance: alert, in no apparent distress Head exam: Present: atraumatic, normocephalic Eye exam: Present: normal appearance, PERRL, EOMI. Absent: nystagmus Neck exam: Present: normal inspection. Absent: tenderness Respiratory exam: Present: normal lung sounds bilaterally Cardiovascular Exam: Present: regular rate, normal rhythm Expanded Peripheral pulses: 2+: Radial (R), Radial (L), Posterior Tibialis (R), Posterior Tibialis (L) GI/Abdominal exam: Present: soft. Absent: tenderness Extremities exam: Present: normal inspection Neurological exam: Present: alert, CN II-XII intact. Absent: motor sensory deficit Expanded Neurological exam: Present: protecting the airway Speech: Present: fluid speech Cranial nerves: EOM's Intact: Normal Sensory exam: Upper Extremity Light Touch: Normal, Lower Extremity Light Touch: Normal Motor strength exam: RUE: 5, LUE: 5, RLE: 5, LLE: 5 Eye Response: (4) open spontaneously Motor Response: (6) obeys commands Verbal Response: (5) oriented Psychiatric exam: Present: normal affect, normal mood Skin exam: Present: normal color Course Vital Signs 02/11/25 02/11/25 13:17 15:01 Temperature 97.8 F Pulse Rate 77 48 L Respiratory 16 22 Rate Blood Pressure 118/64 122/73 O2 Sat by Pulse 100 98 Oximetry EKG Findings - EKG Results: EKG: interpreted by ERMD (Left axis. LVH criteria. first-degree AV block with a RI of 211.), sinus rhythm, normal ST/T EKG shows: bradycardia Medical Decision Making - Medical Decision Making Was pt. sent in by a medical professional or institution (, PA, VEHICLE WASHER, urgent care, hospital, or retirement...) When possible be specific @ -No Did you speak to anyone other than the patient for history (EMS, parent, family, police, friend...)? What history was obtained from this source @ -No Did you review nursing and triage notes (agree or disagree)? Why? @ -I reviewed and agree with nursing and triage notes Were old charts reviewed (outside hosp., previous admission, EMS record, old EKG, old radiological studies, urgent care reports/EKG's, retirement records)? Report findings @ -No old charts were reviewed Differential Diagnosis (chest pain, altered mental status, abdominal pain women, abdominal pain men, vaginal bleeding, weakness, fever, dyspnea, syncope, headache, dizziness, GI bleed, back pain, seizure, CVA, palpatations, mental health, musculoskeletal)? @ -Differential Syncope: Valvular disease, hypertrophic cardiomyopathy, pulmonary embolism, tamponade, tachycardia, bradycardia, AL, hypovolemia, hemorrhage, dissection, anemia, intracranial hemorrhage, seizure, hypoglycemia, carbon monoxide poisoning, this is not meant to be an all-inclusive list. EKG interpreted by me (3pts min.). @ -As above X-rays interpreted by me (1pt min.). @ -Shoulder x-ray and chest x-ray without acute abnormality CT interpreted by me (1pt min.). @ -CT scan of the brain without acute abnormality U/S interpreted by me (1pt. min.). @ -None done What testing was considered but not performed or refused? (CT, X-rays, U/S, labs)? Why? @ -Considered CT angiogram brain and neck however renal function is poor with high concern of putting patient into renal failure if performed What meds were considered but not given or refused? Why? @ -None Did you discuss the management of the patient with other professionals (professionals i.e. , PA, VEHICLE WASHER, lab, RT, psych nurse, social and human services assistant, development editor, teacher, protective services officer, casework supervisor)? Give summary @ -Case discussed with Dr. Ramirez who will admit covering Dr. zelaya Was smoking cessation discussed for >3mins.? @ -No Was critical care preformed (if so, how long)? @ -No Were there social determinants of health that impacted care today? How? (Homelessness, low income, unemployed, alcoholism, drug addiction, transportation, low edu. Level, literacy, decrease access to med. care, [facility], rehab)? @ -No Was there de-escalation of care discussed even if they declined (Discuss DNR or withdrawal of care, Hospice)? DNR status @ -No What co-morbidities impacted this encounter? (DM, HTN, Smoking, COPD, CAD, Cancer, CVA, ARF, Chemo, Hep., AIDS, mental health diagnosis, sleep apnea, morbid obesity)? @ -Recommendation for admission however patient refuses. Was patient admitted / discharged? Hospital course, mention meds given and ro [place], prescriptions, significant lab abnormalities, going to OR and other pertinent info. @ -Patient presents with near syncopal episode with dizziness. On reevaluation patient feeling much better. Patient did receive almost 2 L of fluid. Patient has RYLEY. Plan to admit however patient refuses. Patient does demonstrate medical decision making. Family is present. Patient and family are made aware of desire to have CT angiogram however not able to secondary to renal function. They are informed that plan would be to consider repeating this in the morning with repeat renal function testing however patient refuses and will not stay in the hospital. Patient is in agreement to follow-up and will also follow-up with orthopedics for her shoulder Undiagnosed new problem with uncertain prognosis? @ -No Drug Therapy requiring intensive monitoring for toxicity (Heparin, Nitro, Insulin, Cardizem)? @ -No Were any procedures done? @ -No Diagnosis/symptom? @ -Near syncope, RYLEY Acute, or Chronic, or Acute on Chronic? @ -Acute Uncomplicated (without systemic symptoms) or Complicated (systemic symptoms)? @ -Complicated with vertigo symptoms Side effects of treatment? @ -No Exacerbation, Progression, or Severe Exacerbation? @ -No Poses a threat to life or bodily function? How? (Chest pain, USA, AL, pneumonia, PE, COPD, DKA, ARF, appy, cholecystitis, CVA, Diverticulitis, Homicidal, S uicidal, threat to staff... and all critical care pts) @ -No - Lab Data Result diagrams: 02/11/25 13:34 02/11/25 13:34 Lab Results 02/11/25 02/11/25 02/11/25 Range/Units 13:31 13:34 13:34 WBC 11.69 H (4.50-10.00) 10*3/uL RBC 5.55 (4.40-5.60) 10*6/uL Hgb 13.5 (13.0-17.0) g/dL Hct 40.9 (39.6-50.0) % MCV 73.7 L (80.0-97.0) fL MCH 24.3 L (27.0-32.0) pg MCHC 33.0 (32.0-37.0) g/dL Plt Count 251 (140-440) 10*3/uL MPV 10.2 (9.5-12.2) fL Immature Gran % (Auto) 0.6 % Neutrophils % 72.3 % Lymphocytes % 19.5 % Monocytes % 6.5 % Eosinophils % 0.7 % Basophils % 0.4 % Immature Gran # 0.07 H (0.00-0.04) 10*3/uL Neutrophils # 8.45 H (1.80-7.70) 10*3/uL Lymphocytes # 2.28 (0.90-5.00) 10*3/uL Monocytes # 0.76 (0.20-1.00) 10*3/uL Eosinophils # 0.08 (0.04-0.35) 10*3/uL Basophils # 0.05 (0.00-0.10) 10*3/uL PT 11.1 (10.0-12.5) sec INR 1.0 (<1.2) APTT 22.8 (22.0-30.0) sec Sodium (137-145) mmol/L Potassium (3.5-5.1) mmol/L Chloride (98-107) mmol/L Carbon Dioxide (22-30) mmol/L Anion Gap mmol/L BUN (9-20) mg/dL Creatinine (0.66-1.25) mg/dL Est GFR (CKD-EPI)AfAm (>60 ml/min/1.73 sqM) Est GFR (CKD-EPI)NonAf (>60 ml/min/1.73 sqM) Glucose (74-99) mg/dL POC Glucose (mg/dL) 104 (70-110) mg/dL POC Glu [employer] ID Jamison Ji Calcium (8.4-10.2) mg/dL Total Bilirubin (0.2-1.3) mg/dL AST (17-59) U/L ALT (4-49) U/L Alkaline Phosphatase (38-126) U/L Troponin I (0.000-0.034) ng/mL Total Protein (6.3-8.2) g/dL Albumin (3.5-5.0) g/dL 02/11/25 02/11/25 Range/Units 13:34 13:34 WBC (4.50-10.00) 10*3/uL RBC (4.40-5.60) 10*6/uL Hgb (13.0-17.0) g/dL Hct (39.6-50.0) % MCV (80.0-97.0) fL MCH (27.0-32.0) pg MCHC (32.0-37.0) g/dL Plt Count (140-440) 10*3/uL MPV (9.5-12.2) fL Immature Gran % (Auto) % Neutrophils % % Lymphocytes % % Monocytes % % Eosinophils % % Basophils % % Immature Gran # (0.00-0.04) 10*3/uL Neutrophils # (1.80-7.70) 10*3/uL Lymphocytes # (0.90-5.00) 10*3/uL Monocytes # (0.20-1.00) 10*3/uL Eosinophils # (0.04-0.35) 10*3/uL Basophils # (0.00-0.10) 10*3/uL PT (10.0-12.5) sec INR (<1.2) APTT (22.0-30.0) sec Sodium 141 (137-145) mmol/L Potassium 3.5 (3.5-5.1) mmol/L Chloride 105 (98-107) mmol/L Carbon Dioxide 23 (22-30) mmol/L Anion Gap 13 mmol/L BUN 30 H (9-20) mg/dL Creatinine 2.54 H (0.66-1.25) mg/dL Est GFR (CKD-EPI)AfAm 31 (>60 ml/min/1.73 sqM) Est GFR (CKD-EPI)NonAf 26 (>60 ml/min/1.73 sqM) Glucose 87 (74-99) mg/dL POC Glucose (mg/dL) (70-110) mg/dL POC Glu [employer] ID Calcium 9.3 (8.4-10.2) mg/dL Total Bilirubin 0.6 (0.2-1.3) mg/dL AST 24 (17-59) U/L ALT 13 (4-49) U/L Alkaline Phosphatase 74 (38-126) U/L Troponin I <0.012 (0.000-0.034) ng/mL Total Protein 7.0 (6.3-8.2) g/dL Albumin 4.2 (3.5-5.0) g/dL Disposition Clinical Impression: Near syncope Disposition: HOME SELF-CARE Instructions (If sedation given, give patient instructions): Dizziness (ED) Additional Instructions: Please do follow-up with your primary care physician beginning the week. Have your primary care physician recheck your kidney function. Return for increased dizziness, weakness or confusion, worsening symptoms or any other concerns. Is patient prescribed a controlled substance at d/c from ED?: No Referrals: Wood Solis MD [Primary Care Provider] - 1-2 days Jin Hernandez MD [Medical Doctor] - 1-2 days Time of Disposition: 15:57
[2025-02-11] MEDS: METOCLOPRAMIDE 5 MG/ML 2 ML VIAL IVP STA (13:47)
[2025-02-11] MEDS: MECLIZINE 12.5 MG TAB PO STA (13:48)
[2025-02-11] MEDS: SODIUM CHLORIDE 0.9% 1,000 ML IV STA ×2 (13:50→14:59)
[2025-02-11 13:52] LABS: Basophils # (A) 0.05 10*3/uL (0.00-0.10); Basophils % (A) 0.4 %; Eosinophils # (A) 0.08 10*3/uL (0.04-0.35); Eosinophils % (A) 0.7 %; HCT 40.9 % (39.6-50.0); HGB 13.5 g/dL (13.0-17.0); Lymphocytes # (A) 2.28 10*3/uL (0.90-5.00); Lymphocytes % (A) 19.5 %; MCH 24.3 pg (27.0-32.0); MCHC 33.0 g/dL (32.0-37.0); MCV 73.7 fL (80.0-97.0); Monocytes # (A) 0.76 10*3/uL (0.20-1.00); Monocytes % (A) 6.5 %; Neutrophils # (A) 8.45 10*3/uL (1.80-7.70); Neutrophils % (A) 72.3 %; Platelet Count 251 10*3/uL (140-440); RBC 5.55 10*6/uL (4.40-5.60); RDW 15.9 % (11.5-14.5); WBC 11.69 10*3/uL (4.50-10.00)
[2025-02-11 14:03] LABS: ALT 13 U/L (4-49); AST 24 U/L (17-59); African American GFR (CKD) 31 (>60 ml/min/1.73 sqM); Albumin 4.2 g/dL (3.5-5.0); Alkaline Phosphatase 74 U/L (38-126); Anion Gap 13 mmol/L; Blood Urea Nitrogen 30 mg/dL (9-20); Calcium 9.3 mg/dL (8.4-10.2); Carbon Dioxide 23 mmol/L (22-30); Chloride 105 mmol/L (98-107); Glucose 87 mg/dL (74-99); Non-African American GFR(CKD) 26 (>60 ml/min/1.73 sqM); Potassium 3.5 mmol/L (3.5-5.1); Sodium 141 mmol/L (137-145); Total Protein 7.0 g/dL (6.3-8.2)
[2025-02-11 14:05] LABS: INR 1.0 (<1.2); Partial Thromboplastin Time 22.8 sec (22.0-30.0); Prothrombin Time 11.1 sec (10.0-12.5)
--- NOTE | 2025-02-11 14:31 | XR ---
EXAMINATION TYPE: XR shoulder complete RT DATE OF EXAM: 02/11/2025 2:14 PM COMPARISON: None CLINICAL INDICATION: Male, 59 years old with history of fall; PHH, pain TECHNIQUE: XR shoulder complete RT; examined in AP, internally rotated and scapular Y projections. FINDINGS: No evidence of acute osseous pathology, joint dislocation, or soft tissue swelling. The remaining po rtions of the visualized chest are unremarkable. Degeneration changes of the acromion, distal clavic le with osteophyte formation. There is osteophyte formation of the glenoid and humeral head. There is joint space narrowing of glenohumeral joint. IMPRESSION: 1. No acute osseous pathology. 2. Mild shoulder osteoarthrosis. [facility], , 02/11/2025 2:29 PM
--- NOTE | 2025-02-11 14:32 | XR ---
EXAMINATION TYPE: XR chest 2V DATE OF EXAM: 02/11/2025 2:14 PM COMPARISON: Chest radiographs from CLINICAL INDICATION: Male, 59 years old with history of vertigo; TECHNIQUE: XR chest 2V Frontal and lateral views of the chest. FINDINGS: Lungs/Pleura: There is no evidence of pleural effusion, focal consolidation, or pneumothorax. Pulmonary vascularity: Unremarkable. Heart/mediastinum: Cardiomediastinal silhouette is unremarkable. Musculoskeletal: No acute osseous pathology. IMPRESSION: No acute cardiopulmonary disease/process. [facility], , 02/11/2025 2:30 PM
--- NOTE | 2025-02-11 14:35 | CT ---
EXAMINATION TYPE: CT brain wo con DATE OF EXAM: 02/11/2025 2:20 PM COMPARISON: 08/16/2024. CLINICAL INDICATION: Male, 59 years old with history of vertigo, near syncope, Vertigo, near syncope. TECHNIQUE: Brain: Axial CT images of the brain were obtained with coronal and sagittal reformats created and rev iewed. Contrast used: None. Oral contrast used: None. CT DLP: 1215.4 mGycm, Automated exposure control for dose reduction was used. FINDINGS: Brain: Extra-axial spaces: No abnormal extra-axial fluid collections. Ventricular system: Dilatation in proportion to cerebral atrophy. Cerebral parenchyma: Cerebral atrophy. No acute intraparenchymal hemorrhage or mass effect. The jacobs -white junction is well differentiated. Scattered hypoattenuating areas are seen within the white mat ter. Cerebellum: Unremarkable. Mass effect: No evidence of midline shift. Intracranial vasculature: Atherosclerotic calcifications of the intracranial vessels. Soft tissues: Normal. Calvarium/osseous structures: No depressed skull fracture. Paranasal sinuses and mastoid air cells: Mild scattered paranasal sinus disease. Visualized orbits: Orbital contents are intact. IMPRESSION: 1. No acute intracranial process. 2. Nonspecific white matter changes, likely secondary to chronic small vessel ischemic disease. [facility], , 02/11/2025 2:33 PM
[2025-02-11] MEDS: traMADol 50 MG TAB PO STA (16:00)
[2025-02-11 16:10] VITALS: BP 136/74; PULSE 58; RESP 16
== END 2025-02-11 16:15 | disposition home or self-care (01) ==
LOC: SUPCPDRO 13:16 → EC 13:16
DX: R55 Syncope and collapse (principal); N17.9 Acute kidney failure, unspecified; R00.1 Bradycardia, unspecified; F17.200 Nicotine dependence, unspecified, uncomplicated; Z88.5 Allergy status to narcotic agent; Z88.8 Allergy status to other drugs, medicaments and biological substances
CPT/HCPCS: 99285; 96374; 96361; 36415; 93005; 80053; 84484; 85025; 85610; 85730; 73030; 71046; 70450; J2765